=== PATIENT | female | born 1955 ===

== ENCOUNTER 2022-04-19 18:49 | Emergency (ER) | payer MEDICARE ==
[~2022-04-19] VITALS: Ht 160 cm; Wt 49.1 kg
[2022-04-19 18:53] VITALS: BP 147/77
== END 2022-04-19 19:17 | disposition home or self-care (01) ==
LOC: ER 18:50
DX: F41.9 Anxiety disorder, unspecified (principal); F22 Delusional disorders; F12.90 Cannabis use, unspecified, uncomplicated; Z88.5 Allergy status to narcotic agent
CPT/HCPCS: 99281